=== PATIENT | female | born 1995 | race Caucasian/White ===

== ENCOUNTER 2017-09-11 13:53 | Outpatient (CLI) | payer MEDICAID ==
[~2017-09-11] VITALS: Ht 170.2 cm; Wt 109.1 kg
[2017-09-11 14:11] VITALS: BP 129/65; PULSE 88; TEMP 98.8
[2017-09-11] MEDS ORDERED: PRENATAL (14:15)
[2017-09-11 14:48] VITALS: BP 129/65; PULSE 88; TEMP 98.8
== END 2017-09-11 14:55 | disposition home or self-care (01) ==
LOC: LDRO 13:53
DX: Z03.79 Encounter for other suspected maternal and fetal conditions ruled out (principal); Z3A.38 38 weeks gestation of pregnancy

== ENCOUNTER 2017-09-21 11:10 | Outpatient (CLI) | payer MEDICAID ==
[~2017-09-21] VITALS: Ht 175.3 cm; Wt 115.5 kg
[~2017-09-21 11:10] MED LIST: PRENATAL
[2017-09-21 11:15] VITALS: BP 120/70; PULSE 98; TEMP 98.3
== END 2017-09-21 12:00 | disposition home or self-care (01) ==
LOC: LDRO → LDR 11:10 → LDRO 12:00 → OB 09-23 06:13 → EDSTATUS 09-23 06:21
DX: O60.03 Preterm labor without delivery, third trimester (principal); Z3A.39 39 weeks gestation of pregnancy
CPT/HCPCS: OP

== ENCOUNTER 2017-09-25 06:41 | Inpatient (IN) | payer MEDICAID ==
[2017-09-25] VITALS (55 sets, daily range): BP systolic 11–145; BP diastolic 52–85; PULSE 72–118; TEMP 98–100.2
[~2017-09-25] VITALS: Ht 175.3 cm; Wt 115.5 kg
[2017-09-25 08:14] LABS: BASO % 0.3 % (0.0-2.0); EOS # 0.1 (0.0-0.7); EOS % 1.1 % (0-4.0); GRAN # 8.2 (1.4-6.5); GRAN % 73.5 % (42.2-75.2); LYMPH # 1.8 (1.2-3.4); LYMPH % 15.8 % (20.0-51.0); MEAN CELL VOLUME 90 fl (80.0-95.0); MEAN CORPUSCULAR HGB CONC 34 g/dl (33.0-37.0); MEAN PLATELET VOLUME 10.4 fl (7.4-10.4); MONO # 0.9 (0.1-0.6); PLATELET COUNT 211 K/mm3 (130-400); RED BLOOD COUNT 3.75 M/mm3 (4.10-5.30); REDCELL DISTRIBUTION WIDTH-CV 13.1 % (11.5-14.5)
[2017-09-25 08:17] LABS: HEMATOCRIT 33.7 % (35.0-45.0); HEMOGLOBIN 11.3 g/dl (12.0-15.0); MEAN CORPUSCULAR HEMOGLOBIN 30 pg (26.0-32.0)
[2017-09-26 03:40] VITALS: BP 138/72; PULSE 80; TEMP 98.8
[2017-09-26 08:29] VITALS: BP 128/67; PULSE 90; TEMP 97.9
[2017-09-26] MEDS ORDERED: IBU600 MG PO (09:00)
[2017-09-26] MEDS ORDERED: PERCOCET 325 MG1 TA2 PO (09:00)
[2017-09-26 16:25] VITALS: BP 127/56; PULSE 100; TEMP 97.4
[2017-09-26 21:00] VITALS: BP 130/78; PULSE 76; TEMP 98.2
[2017-09-27 06:50] VITALS: BP 139/82; PULSE 84; TEMP 98.4
== END 2017-09-27 12:30 | disposition home or self-care (01) | DRG 775 ==
LOC: LDR 06:41 → OB 06:56 → LDR 06:56 → OB 22:00
PROVIDERS: Obstetrics & Gynecology
PROC: 10E0XZZ Delivery of Products of Conception, External Approach (ICD-10-PCS; principal; 2017-09-25)
PROC: 3E033VJ Introduction of Other Hormone into Peripheral Vein, Percutaneous Approach (ICD-10-PCS; 2017-09-25)
DX: O48.0 Post-term pregnancy (principal); O69.81X0 Labor and delivery complicated by cord around neck, without compression, not applicable or unspecified; Z3A.40 40 weeks gestation of pregnancy; Z37.0 Single live birth
CPT/HCPCS: J0595; J2590; J2795; J7120

== ENCOUNTER 2019-03-08 10:02 | Emergency (ER) | payer MEDICAID ==
[~2019-03-08] VITALS: Ht 170.2 cm; Wt 102.3 kg
[~2019-03-08 10:02] MED LIST changes: +IBU600 MG PO; +PERCOCET 325 MG1 TA2 PO
[2019-03-08 10:08] VITALS: TEMP 98.8
[2019-03-08 10:28] LABS: COLLECTION METHOD CLEAN CATCH
[2019-03-08 10:46] LABS: MUCOUS Present /lpf; PH 6 (5-8); URINE APPEARANCE Hazy; URINE BACTERIA None Seen /hpf; URINE BILIRUBIN Negative (NEGATIVE); URINE BLOOD Negative (NEGATIVE); URINE COLOR Yellow; URINE GLUCOSE Negative (NEGATIVE); URINE KETONE Negative (NEGATIVE); URINE LEUKOCYTE ESTERASE 2+ (NEGATIVE); URINE NITRATE Negative (NEGATIVE); URINE PROTEIN(semi-quant) Negative (NEGATIVE); URINE UROBILINOGEN Negative (NEGATIVE)
[2019-03-08] MEDS ORDERED: CEFTIN 250250 MG/TAB PO (11:01)
[2019-03-08 11:06] VITALS: BP 107/70; PULSE 75
== END 2019-03-08 11:10 | disposition home or self-care (01) ==
LOC: COL.ER 10:02
PROVIDERS: Nurse Practitioner
DX: N39.0 Urinary tract infection, site not specified (principal)

== ENCOUNTER → 2020-05-10 | Outpatient (CLI) | payer MEDICAID ==
[~2020-05-10] MED LIST changes: +CEFTIN 250250 MG/TAB PO
[2020-05-10 16:53] LABS: BASO % 0.2 % (0.0-2.0); EOS # 0.1 (0.0-0.7); EOS % 1.2 % (0-4.0); GRAN # 4.3 (1.4-6.5); GRAN % 64.5 % (42.2-75.2); HEMATOCRIT 37.6 % (37.0-47.0); LYMPH # 1.9 (1.2-3.4); LYMPH % 28.3 % (20.0-51.0); MEAN CELL VOLUME 88 fl (80.0-100.0); MEAN CORPUSCULAR HEMOGLOBIN 30 pg (27.0-31.0); MEAN CORPUSCULAR HGB CONC 35 g/dl (33.0-37.0); MEAN PLATELET VOLUME 9.7 fl (7.4-10.4); MONO # 0.4 (0.1-0.6); MONO % 5.5 % (1.7-9.3); PLATELET COUNT 243 K/mm3 (130-400); RED BLOOD COUNT 4.27 M/mm3 (4.10-5.30); REDCELL DISTRIBUTION WIDTH-CV 11.7 % (11.5-14.5)
[2020-05-10 17:06] LABS: ALANINE AMINOTRANSFERASE 19 U/L (4-34); ALBUMIN 4.5 gm/dL (3.5-5.0); ALKALINE PHOSPHATASE 65 U/L (50-136); ANION GAP 10 mmol/L (7-16); AST,SGOT 23 U/L (15-37); BILIRUBIN,TOTAL 1.6 mg/dL (0.0-1.0); BLOOD UREA NITROGEN 12 mg/dL (7-17); CALCIUM 9.5 mg/dL (8.4-10.2); CARBON DIOXIDE 24 mmol/L (22-30); CHLORIDE 104 mmol/L (98-107); CREATININE, serum 0.78 (0.52-1.25); GLUCOSE 112 mg/dL (74-106); POTASSIUM 3.6 mmol/L (3.4-5.0); SODIUM 138 mmol/L (137-145); TOTAL PROTEIN 7.3 gm/dL (6.4-8.2)
[2020-05-10 17:45] LABS: HCG,QUANTITATIVE < 2 mIU/mL (0-5)
== END ==
LOC: ZCOL.LAB 10:57 → COL.LAB 10:57
PROVIDERS: Obstetrics & Gynecology
DX: Z32.01 Encounter for pregnancy test, result positive (principal); Z97.5 Presence of (intrauterine) contraceptive device

== ENCOUNTER → 2020-10-16 | Outpatient (CLI) | payer SELFPAY | LOC: COL.RAD 12:15 | DX: Z30.431 Encounter for routine checking of intrauterine contraceptive device (principal) ==

== ENCOUNTER 2021-09-06 22:09 | Emergency (ER) | payer SELFPAY ==
[~2021-09-06] VITALS: Ht 170.2 cm; Wt 90.9 kg
[2021-09-06 22:27] VITALS: TEMP 99.9
[2021-09-07 00:26] LABS: BASO # 0.1 K/mm3 (0.0-0.2); BASO % 0.6 % (0.0-2.0); COLLECTION METHOD CLEAN CATCH; EOS # 0.1 K/mm3 (0.0-0.7); EOS % 1.2 % (0.0-4.0); GRAN # 5.8 K/mm3 (1.4-6.5); GRAN % 64.1 % (42.2-75.2); LYMPH # 2.4 K/mm3 (1.2-3.4); LYMPH % 26.6 % (20.0-51.0); MEAN CELL VOLUME 70 fl (80.0-100.0); MEAN CORPUSCULAR HGB CONC 28 g/dl (33.0-37.0); MEAN PLATELET VOLUME 8.8 fl (7.4-10.4); MONO # 0.6 K/mm3 (0.1-0.6); MONO % 6.9 % (1.7-9.3); PLATELET COUNT 426 K/mm3 (130-400); RED BLOOD COUNT 4.32 M/mm3 (4.10-5.30); REDCELL DISTRIBUTION WIDTH-CV 15.9 % (11.5-14.5)
[2021-09-07 00:32] LABS: HEMATOCRIT 30.4 % (37.0-47.0); HEMOGLOBIN 8.6 g/dl (12.5-16.0); MEAN CORPUSCULAR HEMOGLOBIN 20 pg (27-31)
[2021-09-07 00:43] LABS: ALBUMIN 4.3 gm/dL (3.5-5.0); BILIRUBIN,TOTAL 1.2 mg/dL (0.2-1.2); C-REACTIVE PROTEIN 0.5 mg/dL (0.00-0.50); CALCIUM 9.3 mg/dL (8.4-10.2); CREATININE, serum 0.81 mg/dL (0.57-1.11); POTASSIUM 3.9 mmol/L (3.5-4.5); TOTAL PROTEIN 8.2 gm/dL (6.2-8.1)
[2021-09-07 00:56] LABS: MUCOUS Present (NOT PRESENT); PH 5 (5-8); URINE APPEARANCE Cloudy (CLEAR/HAZY); URINE BACTERIA None Seen /hpf (NONE SEEN); URINE BILIRUBIN Negative (NEGATIVE); URINE BLOOD Negative (NEGATIVE); URINE COLOR Yellow (YELLOW); URINE GLUCOSE Negative (NEGATIVE); URINE KETONE Negative (NEGATIVE); URINE LEUKOCYTE ESTERASE 2+ (NEGATIVE); URINE NITRATE Negative (NEGATIVE); URINE PROTEIN(semi-quant) 1+ (NEGATIVE); URINE UROBILINOGEN Negative (NEGATIVE)
[2021-09-07] MEDS ORDERED: CEFTIN 250250 MG/TAB PO (01:58)
[2021-09-07 02:28] VITALS: BP 125/74; PULSE 79
== END 2021-09-07 02:28 | disposition home or self-care (01) ==
LOC: COL.ER 22:09
PROVIDERS: Nurse Practitioner
DX: N39.0 Urinary tract infection, site not specified (principal); D64.9 Anemia, unspecified; Z20.822 Contact with and (suspected) exposure to COVID-19
CPT/HCPCS: J0696; J1200; J1885; J2765; J7030

== ENCOUNTER 2021-09-20 08:51 | Emergency (ER) | payer SELFPAY ==
[~2021-09-20] VITALS: Ht 172.7 cm; Wt 90.9 kg
[2021-09-20 09:04] VITALS: TEMP 98.2
[2021-09-20 09:37] LABS: COLLECTION METHOD CLEAN CATCH
[2021-09-20 09:45] LABS: MUCOUS Present (NOT PRESENT); PH 6 (5-8); URINE APPEARANCE Hazy (CLEAR/HAZY); URINE BACTERIA Rare /hpf (NONE SEEN); URINE BILIRUBIN Negative (NEGATIVE); URINE BLOOD Negative (NEGATIVE); URINE COLOR Yellow (YELLOW); URINE GLUCOSE Negative (NEGATIVE); URINE KETONE Negative (NEGATIVE); URINE LEUKOCYTE ESTERASE Negative (NEGATIVE); URINE NITRATE Negative (NEGATIVE); URINE PROTEIN(semi-quant) Negative (NEGATIVE); URINE RBC 0-2 /hpf (0-2); URINE UROBILINOGEN Negative (NEGATIVE)
[2021-09-20 11:21] LABS: BASO % 0.3 % (0.0-2.0); EOS # 0.1 K/mm3 (0.0-0.7); EOS % 1.3 % (0.0-4.0); GRAN # 4.7 K/mm3 (1.4-6.5); LYMPH # 1.7 K/mm3 (1.2-3.4); LYMPH % 24.2 % (20.0-51.0); MEAN CELL VOLUME 69 fl (80.0-100.0); MEAN CORPUSCULAR HGB CONC 28 g/dl (33.0-37.0); MEAN PLATELET VOLUME 8.9 fl (7.4-10.4); MONO # 0.4 K/mm3 (0.1-0.6); MONO % 5.9 % (1.7-9.3); PLATELET COUNT 279 K/mm3 (130-400); RED BLOOD COUNT 4.26 M/mm3 (4.10-5.30)
[2021-09-20 11:22] LABS: HEMATOCRIT 29.5 % (37.0-47.0); HEMOGLOBIN 8.3 g/dl (12.5-16.0); MEAN CORPUSCULAR HEMOGLOBIN 19 pg (27-31)
[2021-09-20 11:37] LABS: ALBUMIN 4.1 gm/dL (3.5-5.0); C-REACTIVE PROTEIN 0.71 mg/dL (0.00-0.50); CALCIUM 9.2 mg/dL (8.4-10.2); CREATININE, serum 0.69 mg/dL (0.57-1.11); POTASSIUM 4.2 mmol/L (3.5-4.5); TOTAL PROTEIN 7.8 gm/dL (6.2-8.1)
[2021-09-20 12:03] LABS: BILIRUBIN,TOTAL 0.9 mg/dL (0.2-1.2)
[2021-09-20] MEDS ORDERED: MEDROL 4MG DOSPA4 MG PO (13:09)
[2021-09-20] MEDS ORDERED: ZANAFLEX CAPSULE4 MG PO (13:09)
[2021-09-20 13:20] VITALS: BP 108/69; PULSE 91
== END 2021-09-20 14:12 | disposition home or self-care (01) ==
LOC: COL.ER 08:51
PROVIDERS: Family Medicine
DX: U07.1 COVID-19 (principal); R10.9 Unspecified abdominal pain; M54.9 Dorsalgia, unspecified; Z87.440 Personal history of urinary (tract) infections
CPT/HCPCS: Q9967

== ENCOUNTER 2023-11-25 16:53 | Emergency (ER) | payer SELFPAY ==
[~2023-11-25] VITALS: Ht 172.7 cm; Wt 100.0 kg
[~2023-11-25 16:53] MED LIST changes: +MEDROL 4MG DOSPA4 MG PO; +ZANAFLEX CAPSULE4 MG PO
[2023-11-25 17:00] VITALS: BP 139/78
[2023-11-25] MEDS ORDERED: diphenhydrAMINE 50 MG/ML 1 ML VIAL IM ONE (19:15)
[2023-11-25] MEDS ORDERED: Ketorolac 30 MG/ML VIAL IM ONE (19:15)
[2023-11-25 21:02] VITALS: PULSE 96; TEMP 98
== END 2023-11-25 21:03 | disposition home or self-care (01) ==
LOC: COL.ER 16:53
DX: G43.909 Migraine, unspecified, not intractable, without status migrainosus (principal)
CPT/HCPCS: J1200; J1885

== ENCOUNTER → 2023-12-19 | Outpatient (CLI) | payer OTHER ==
[~2023-12-19] MED LIST changes: +Iohexol 300 - 100 ML VIAL IV ONE
== END ==
LOC: COL.RAD 13:40
DX: Z31.41 Encounter for fertility testing (principal)
CPT/HCPCS: Q9967